=== PATIENT | male | born 1965 | race Caucasian/White ===

== ENCOUNTER 2016-06-29 09:43 | Emergency (ER) | payer MEDICARE ==
[2015-08-20 08:21] VITALS: BMI 23.1
[~2016-06-29 09:43] MED LIST: ALDACTONE25 MG PO; BYSTOLIC5 MG PO; KLONOPIN1 MG PO; LASIX40 MG PO; MORPHINE SULFAT30 M3 PO; MORPHINE SULFAT60 M5 PO; NORCO 5/325 TAB1 TA1 PO; PRILOSEC20 MG PO; ROXICODONE30 MG PO; ROXICODONE5 MG PO; VIBRAMYCIN 100100 MG PO; VIBRAMYCIN50 MG PO
== END 2016-06-29 11:13 | disposition home or self-care (01) ==
LOC: D.ER 09:43
DX: S69.92XA Unspecified injury of left wrist, hand and finger(s), initial encounter (principal); W19.XXXA Unspecified fall, initial encounter; Y93.02 Activity, running; Y92.159 Unspecified place in reform school as the place of occurrence of the external cause; K22.70 Barrett's esophagus without dysplasia; K74.60 Unspecified cirrhosis of liver; I10 Essential (primary) hypertension

== ENCOUNTER 2016-07-24 11:46 | Emergency (ER) | payer MEDICARE ==
[2015-08-20 08:21] VITALS: BMI 23.1
== END 2016-07-24 14:21 | disposition home or self-care (01) ==
LOC: D.ER 11:46
DX: M79.622 Pain in left upper arm (principal); S46.212A Strain of muscle, fascia and tendon of other parts of biceps, left arm, initial encounter; W01.0XXA Fall on same level from slipping, tripping and stumbling without subsequent striking against object, initial encounter; Y93.89 Activity, other specified; Y92.019 Unspecified place in single-family (private) house as the place of occurrence of the external cause; K74.60 Unspecified cirrhosis of liver; K22.70 Barrett's esophagus without dysplasia; I10 Essential (primary) hypertension

== ENCOUNTER → 2018-02-27 10:26 | Outpatient (CLI) | payer MEDICARE ==
[2015-08-20 08:21] VITALS: BMI 23.1
== END | disposition home or self-care (01) ==
LOC: D.RAD 10:26
DX: M54.2 Cervicalgia (principal)

== ENCOUNTER 2018-09-26 11:57 | Emergency (ER) | payer MEDICARE ==
[~2018-09-26] VITALS: Ht 185.4 cm; Wt 86.4 kg
[2018-09-26 11:59] VITALS: Ht 185.4 cm; Wt 86.4 kg
[2018-09-26 16:09] VITALS: BP 122/68
== END 2018-09-26 16:10 | disposition home or self-care (01) ==
LOC: D.ER 11:57
DX: M25.552 Pain in left hip (principal); M87.88 Other osteonecrosis, other site

== ENCOUNTER → 2018-11-03 09:32 | Outpatient (CLI) | payer MEDICARE ==
[2018-09-26 11:59] VITALS: BMI 25.1
== END | disposition home or self-care (01) ==
LOC: D.LABREF 09:32
PROVIDERS: ATTEND Family Medicine
DX: M86.60 Other chronic osteomyelitis, unspecified site (principal)

== ENCOUNTER → 2018-11-06 18:56 | Outpatient (CLI) | payer MEDICARE ==
[2018-09-26 11:59] VITALS: BMI 25.1
[2018-11-06 19:10] LABS: BASOPHILS 0.9 % (0-2); EOSINOPHILS 3.9 % (0-7); HEMATOCRIT 32.3 % (42.0-54.0); HEMOGLOBIN 10.4 g/dL (13.5-17.5); IMMATURE GRANULOCYTES 0.2 % (0-5); LYMPHOCYTES 15.7 % (15-50); MCH 25.6 pg (26.0-34.0); MCHC 32.2 g/dL (31.0-37.0); MCV 79.4 fL (80.0-100.0); MEAN PLATELET VOLUME 10.4 fL (7.4-10.4); MONOCYTES 10.3 % (2-11); PLATELET COUNT 172 10x3/uL (130-400); RBC 4.07 10x6/uL (4.20-6.10); WBC 4.6 10x3/uL (4.8-10.8)
[2018-11-06 19:28] LABS: CREATININE - SERUM 1.2 mg/dL (0.6-1.3); VANCOMYCIN - TROUGH 18.9 ug/mL (10.0-20.0)
== END | disposition home or self-care (01) ==
LOC: D.LABREF 18:56
PROVIDERS: ATTEND Family Medicine
DX: M86.6 Other chronic osteomyelitis (principal); K74.69 Other cirrhosis of liver

== ENCOUNTER → 2018-11-13 17:41 | Outpatient (CLI) | payer MEDICARE ==
[2018-09-26 11:59] VITALS: BMI 25.1
[2018-11-13 18:34] LABS: HEMATOCRIT 27.9 % (42.0-54.0); MCH 25.2 pg (26.0-34.0); MCHC 32.3 g/dL (31.0-37.0); MCV 78.2 fL (80.0-100.0); RBC 3.57 10x6/uL (4.20-6.10)
[2018-11-13 18:55] LABS: CREATININE - SERUM 0.9 mg/dL (0.6-1.3)
[2018-11-13 19:00] LABS: PLATELET COUNT 102 10x3/uL (130-400)
[2018-11-13 21:32] LABS: LYMPHOCYTES 22 % (15-50); MONOCYTES 6 % (2-11); NEUTROPHILS 66 % (40-80); PLATELET ESTIMATE DECREASED
== END | disposition home or self-care (01) ==
LOC: D.LABREF 17:41
PROVIDERS: ATTEND Family Medicine
DX: T84.59XA Infection and inflammatory reaction due to other internal joint prosthesis, initial encounter (principal)

== ENCOUNTER → 2018-11-20 14:06 | Outpatient (CLI) | payer MEDICARE ==
[2018-09-26 11:59] VITALS: BMI 25.1
[2018-11-20 23:44] LABS: WBC 4.9 10x3/uL (4.8-10.8)
[2018-11-20 23:45] LABS: HEMATOCRIT 24.3 % (42.0-54.0); HEMOGLOBIN 7.7 g/dL (13.5-17.5); LYMPHOCYTES 21.3 % (15-50); MCHC 31.7 g/dL (31.0-37.0); MCV 78.9 fL (80.0-100.0); MEAN PLATELET VOLUME 9.7 fL (7.4-10.4); NEUTROPHILS 74.6 % (40-80); PLATELET COUNT 138 10x3/uL (130-400); RBC 3.08 10x6/uL (4.20-6.10); RDW 14.3 % (11.5-14.5)
== END | disposition home or self-care (01) ==
LOC: D.LABREF 14:06
PROVIDERS: ATTEND Family Medicine
DX: T84.59XA Infection and inflammatory reaction due to other internal joint prosthesis, initial encounter (principal)

== ENCOUNTER → 2018-11-23 17:51 | Outpatient (CLI) | payer MEDICARE ==
[2018-09-26 11:59] VITALS: BMI 25.1
[2018-11-23 18:08] LABS: BASOPHILS 0.3 % (0-2); EOSINOPHILS 3.8 % (0-7); HEMATOCRIT 29.5 % (42.0-54.0); HEMOGLOBIN 9.2 g/dL (13.5-17.5); IMMATURE GRANULOCYTES 0.6 % (0-5); LYMPHOCYTES 13.3 % (15-50); MCH 24.6 pg (26.0-34.0); MCHC 31.2 g/dL (31.0-37.0); MCV 78.9 fL (80.0-100.0); MEAN PLATELET VOLUME 9.4 fL (7.4-10.4); MONOCYTES 10.4 % (2-11); NEUTROPHILS 71.6 % (40-80); PLATELET COUNT 134 10x3/uL (130-400); RBC 3.74 10x6/uL (4.20-6.10); RDW 15.6 % (11.5-14.5); WBC 3.2 10x3/uL (4.8-10.8)
== END | disposition home or self-care (01) ==
LOC: D.LABREF 17:51
PROVIDERS: ATTEND Internal Medicine Infectious Disease
DX: R74.8 Abnormal levels of other serum enzymes (principal); T84.59XA Infection and inflammatory reaction due to other internal joint prosthesis, initial encounter

== ENCOUNTER → 2018-11-27 17:53 | Outpatient (CLI) | payer MEDICARE ==
[2018-09-26 11:59] VITALS: BMI 25.1
[2018-11-27 18:19] LABS: BASOPHILS 0.6 % (0-2); EOSINOPHILS 2.1 % (0-7); HEMOGLOBIN 9.3 g/dL (13.5-17.5); IMMATURE GRANULOCYTES 0.3 % (0-5); LYMPHOCYTES 13.4 % (15-50); MCH 24.5 pg (26.0-34.0); MCV 78.9 fL (80.0-100.0); MEAN PLATELET VOLUME 9.4 fL (7.4-10.4); NEUTROPHILS 75.6 % (40-80); PLATELET COUNT 136 10x3/uL (130-400); RDW 15.4 % (11.5-14.5); WBC 3.4 10x3/uL (4.8-10.8)
[2018-11-27 18:33] LABS: CREATININE - SERUM 1.1 mg/dL (0.6-1.3)
== END | disposition home or self-care (01) ==
LOC: D.LABREF 17:53
PROVIDERS: ATTEND Family Medicine
DX: T84.59XA Infection and inflammatory reaction due to other internal joint prosthesis, initial encounter (principal)

== ENCOUNTER → 2018-12-04 13:53 | Outpatient (CLI) | payer MEDICARE ==
[2018-09-26 11:59] VITALS: BMI 25.1
[2018-12-04 14:37] LABS: BASOPHILS 0.6 % (0-2); EOSINOPHILS 1.8 % (0-7); HEMATOCRIT 33.4 % (42.0-54.0); HEMOGLOBIN 10.7 g/dL (13.5-17.5); IMMATURE GRANULOCYTES 0.6 % (0-5); LYMPHOCYTES 11.8 % (15-50); MCH 24.1 pg (26.0-34.0); MCV 75.2 fL (80.0-100.0); MEAN PLATELET VOLUME 9.3 fL (7.4-10.4); MONOCYTES 8.4 % (2-11); NEUTROPHILS 76.8 % (40-80); RBC 4.44 10x6/uL (4.20-6.10); RDW 15.4 % (11.5-14.5)
[2018-12-04 14:46] LABS: PLATELET COUNT 169 10x3/uL (130-400)
== END | disposition home or self-care (01) ==
LOC: D.LABREF 13:53
PROVIDERS: ATTEND Internal Medicine Infectious Disease
DX: T84.59XA Infection and inflammatory reaction due to other internal joint prosthesis, initial encounter (principal); M86.612 Other chronic osteomyelitis, left shoulder; G62.9 Polyneuropathy, unspecified

== ENCOUNTER → 2019-08-28 12:48 | Outpatient (CLI) | payer MEDICARE ==
[2018-09-26 11:59] VITALS: BMI 25.1
== END | disposition home or self-care (01) ==
LOC: D.RAD 12:48
PROVIDERS: ATTEND Podiatrist Foot & Ankle Surgery
DX: S93.124A Dislocation of metatarsophalangeal joint of right lesser toe(s), initial encounter (principal); M20.41 Other hammer toe(s) (acquired), right foot

== ENCOUNTER → 2019-09-28 12:01 | Outpatient (CLI) | payer MEDICARE ==
[2018-09-26 11:59] VITALS: BMI 25.1
[~2019-09-28 12:01] MED LIST changes: +ASCORBIC ACID500 MG PO; +OXYCODONE HCL5 M1 PO; +VITAMIN B-2100 MG PO; +VITAMIN B-6100 MG PO; +VITAMIN E100 UNIT PO; +ZINC GLUCONATE50 MG PO
== END | disposition home or self-care (01) ==
LOC: D.LABREF 12:01
PROVIDERS: ATTEND Internal Medicine Pulmonary Disease
DX: Z11.59 Encounter for screening for other viral diseases (principal)

== ENCOUNTER 2019-10-02 09:54 | Day surgery (SDC) | payer MEDICARE ==
[~2019-10-02] VITALS: Ht 185.4 cm; Wt 79.4 kg
[~2019-10-02 09:54] MED LIST changes: -ASCORBIC ACID500 MG PO; -VITAMIN B-6100 MG PO; -VITAMIN E100 UNIT PO
[2019-10-02 10:19] LABS: BASOPHILS 0.5 % (0-2); EOSINOPHILS 1.7 % (0-7); HEMATOCRIT 46.9 % (42.0-54.0); HEMOGLOBIN 15.3 g/dL (13.5-17.5); IMMATURE GRANULOCYTES 0.6 % (0-5); LYMPHOCYTES 16.1 % (15-50); MCH 24.2 pg (26.0-34.0); MCHC 32.6 g/dL (31.0-37.0); MCV 74.2 fL (80.0-100.0); MONOCYTES 7.6 % (2-11); NEUTROPHILS 73.5 % (40-80); RBC 6.32 10x6/uL (4.20-6.10); RDW 16.5 % (11.5-14.5); WBC 11.1 10x3/uL (4.8-10.8)
[2019-10-02 10:22] LABS: PLATELET COUNT 203 10x3/uL (130-400)
[2019-10-02 10:34] LABS: ALBUMIN 4.4 g/dL (3.4-5.0); ANION GAP 14.3 mmol/L (8-16); BILIRUBIN - TOTAL 0.58 mg/dL (0.2-1.3); CALCIUM 9.5 mg/dL (8.5-10.1); CARBON DIOXIDE 25.8 mmol/L (21.0-32.0); CREATININE - SERUM 1.3 mg/dL (0.6-1.3); POTASSIUM - SERUM 4.1 mmol/L (3.5-5.1); PROTEIN - SERUM 9.5 g/dL (6.4-8.2)
[2019-10-02 10:40] LABS: INR 1.07 (0.85-1.17); PROTIME 13.8 SECONDS (11.6-15.0)
[2019-10-02 10:41] LABS: APTT 38.8 SECONDS (22.8-39.4)
[2019-10-02] MEDS ORDERED: VITAMIN E100 UNIT PO (11:45)
[2019-10-02] MEDS ORDERED: VITAMIN B-6100 MG PO (11:46)
[2019-10-02] MEDS ORDERED: ASCORBIC ACID500 MG PO (11:47)
[2019-10-02 11:54] VITALS: BP 109/83; Ht 185.4 cm; Wt 79.4 kg
== END 2019-10-02 14:40 | disposition home or self-care (01) ==
LOC: D.OPS 09:54
PROVIDERS: Anesthesiology; ATTEND Podiatrist Foot & Ankle Surgery
DX: S93.334A Other dislocation of right foot, initial encounter (principal); L97.519 Non-pressure chronic ulcer of other part of right foot with unspecified severity; X58.XXXA Exposure to other specified factors, initial encounter

== ENCOUNTER → 2019-12-31 17:54 | Outpatient (CLI) | payer MEDICARE ==
[2019-10-02 11:54] VITALS: BMI 23.1
[~2019-12-31 17:54] MED LIST changes: +ASCORBIC ACID500 MG PO; +VITAMIN B-6100 MG PO; +VITAMIN E100 UNIT PO
[2019-12-31 18:31] LABS: BASOPHILS 0.3 % (0-2); EOSINOPHILS 1.6 % (0-7); HEMATOCRIT 32.6 % (42.0-54.0); HEMOGLOBIN 10.2 g/dL (13.5-17.5); IMMATURE GRANULOCYTES 0.3 % (0-5); LYMPHOCYTES 11.3 % (15-50); MCH 23.8 pg (26.0-34.0); MCHC 31.3 g/dL (31.0-37.0); MEAN PLATELET VOLUME 9.6 fL (7.4-10.4); MONOCYTES 12.2 % (2-11); NEUTROPHILS 74.3 % (40-80); RBC 4.29 10x6/uL (4.20-6.10); RDW 17.8 % (11.5-14.5); WBC 3.1 10x3/uL (4.8-10.8)
[2019-12-31 18:32] LABS: PLATELET COUNT 101 10x3/uL (130-400)
[2019-12-31 18:59] LABS: ALBUMIN 3.3 g/dL (3.4-5.0); BILIRUBIN - DIRECT 0.23 mg/dL (0.00-0.30); BILIRUBIN - INDIRECT 0.27 mg/dL (0.00-1.00); BILIRUBIN - TOTAL 0.5 mg/dL (0.2-1.3); CREATININE - SERUM 1.1 mg/dL (0.6-1.3); PROTEIN - SERUM 7.7 g/dL (6.4-8.2)
== END | disposition home or self-care (01) ==
LOC: D.LAB 17:54
PROVIDERS: ATTEND Internal Medicine Infectious Disease
DX: Z47.31 Aftercare following explantation of shoulder joint prosthesis (principal)

== ENCOUNTER → 2020-01-07 17:15 | Outpatient (CLI) | payer MEDICARE ==
[2019-10-02 11:54] VITALS: BMI 23.1
[2020-01-07 23:19] LABS: BASOPHILS 0.5 % (0-2); EOSINOPHILS 1.4 % (0-7); HEMATOCRIT 31.2 % (42.0-54.0); HEMOGLOBIN 9.7 g/dL (13.5-17.5); IMMATURE GRANULOCYTES 0.5 % (0-5); LYMPHOCYTES 17.9 % (15-50); MCH 24.3 pg (26.0-34.0); MCHC 31.1 g/dL (31.0-37.0); MCV 78.2 fL (80.0-100.0); MEAN PLATELET VOLUME 9.3 fL (7.4-10.4); MONOCYTES 11.6 % (2-11); NEUTROPHILS 68.1 % (40-80); RBC 3.99 10x6/uL (4.20-6.10); RDW 18.2 % (11.5-14.5); WBC 2.1 10x3/uL (4.8-10.8)
[2020-01-07 23:22] LABS: PLATELET COUNT 134 10x3/uL (130-400)
[2020-01-07 23:28] LABS: BILIRUBIN - DIRECT 0.1 mg/dL (0.00-0.30); BILIRUBIN - INDIRECT 0.09 mg/dL (0.00-1.00); BILIRUBIN - TOTAL 0.19 mg/dL (0.2-1.3); PROTEIN - SERUM 7.1 g/dL (6.4-8.2)
== END | disposition home or self-care (01) ==
LOC: D.LABREF 17:15
PROVIDERS: ATTEND Internal Medicine Infectious Disease
DX: T84.59XA Infection and inflammatory reaction due to other internal joint prosthesis, initial encounter (principal)

== ENCOUNTER → 2020-01-14 19:13 | Outpatient (CLI) | payer MEDICARE ==
[2019-10-02 11:54] VITALS: BMI 23.1
[2020-01-14 20:04] LABS: HEMOGLOBIN 10.2 g/dL (13.5-17.5); MCH 24.2 pg (26.0-34.0); MCHC 30.9 g/dL (31.0-37.0); MCV 78.2 fL (80.0-100.0); MEAN PLATELET VOLUME 10.2 fL (7.4-10.4); PLATELET COUNT 130 10x3/uL (130-400); RBC 4.22 10x6/uL (4.20-6.10); RDW 18.8 % (11.5-14.5); WBC 2.8 10x3/uL (4.8-10.8)
[2020-01-14 20:24] LABS: ALBUMIN 3.5 g/dL (3.4-5.0); BILIRUBIN - DIRECT 0.14 mg/dL (0.00-0.30); BILIRUBIN - INDIRECT 0.18 mg/dL (0.00-1.00); BILIRUBIN - TOTAL 0.32 mg/dL (0.2-1.3); PROTEIN - SERUM 7.8 g/dL (6.4-8.2)
[2020-01-14 22:14] LABS: LYMPHOCYTES 22 % (15-50); MONOCYTES 7 % (2-11); NEUTROPHILS 68 % (40-80); PLATELET ESTIMATE NORMAL
== END | disposition home or self-care (01) ==
LOC: D.LABREF 19:13
PROVIDERS: ATTEND Internal Medicine Infectious Disease
DX: T84.59XA Infection and inflammatory reaction due to other internal joint prosthesis, initial encounter (principal)

== ENCOUNTER → 2020-01-21 20:27 | Outpatient (CLI) | payer MEDICARE ==
[2019-10-02 11:54] VITALS: BMI 23.1
[2020-01-21 20:47] LABS: HEMATOCRIT 32.3 % (42.0-54.0); HEMOGLOBIN 9.8 g/dL (13.5-17.5); MCH 23.8 pg (26.0-34.0); MCHC 30.3 g/dL (31.0-37.0); MCV 78.6 fL (80.0-100.0); MEAN PLATELET VOLUME 9.7 fL (7.4-10.4); PLATELET COUNT 156 10x3/uL (130-400); RBC 4.11 10x6/uL (4.20-6.10); RDW 17.9 % (11.5-14.5); WBC 2.9 10x3/uL (4.8-10.8)
[2020-01-21 21:02] LABS: ALBUMIN 3.4 g/dL (3.4-5.0); BILIRUBIN - DIRECT 0.1 mg/dL (0.00-0.30); BILIRUBIN - INDIRECT 0.25 mg/dL (0.00-1.00); BILIRUBIN - TOTAL 0.35 mg/dL (0.2-1.3); CREATININE - SERUM 0.9 mg/dL (0.6-1.3); PROTEIN - SERUM 7.9 g/dL (6.4-8.2)
[2020-01-21 21:42] LABS: LYMPHOCYTES 14 % (15-50); MONOCYTES 2 % (2-11); NEUTROPHILS 84 % (40-80); PLATELET ESTIMATE NORMAL
== END | disposition home or self-care (01) ==
LOC: D.LABREF 20:27
PROVIDERS: ATTEND Internal Medicine Infectious Disease
DX: T84.59XA Infection and inflammatory reaction due to other internal joint prosthesis, initial encounter (principal)

== ENCOUNTER → 2020-01-28 18:04 | Outpatient (CLI) | payer MEDICARE ==
[2019-10-02 11:54] VITALS: BMI 23.1
[2020-01-28 19:36] LABS: HEMATOCRIT 34.8 % (42.0-54.0); MCH 24.1 pg (26.0-34.0); MCHC 31.6 g/dL (31.0-37.0); MCV 76.1 fL (80.0-100.0); MEAN PLATELET VOLUME 9.5 fL (7.4-10.4); PLATELET COUNT 142 10x3/uL (130-400); RBC 4.57 10x6/uL (4.20-6.10); RDW 17.4 % (11.5-14.5); WBC 2.4 10x3/uL (4.8-10.8)
[2020-01-28 20:22] LABS: ALBUMIN 3.5 g/dL (3.4-5.0); BILIRUBIN - DIRECT 0.06 mg/dL (0.00-0.30); BILIRUBIN - INDIRECT 0.2 mg/dL (0.00-1.00); BILIRUBIN - TOTAL 0.26 mg/dL (0.2-1.3); PROTEIN - SERUM 7.8 g/dL (6.4-8.2)
[2020-01-28 21:59] LABS: EOSINOPHILS 3 % (0-7); LYMPHOCYTES 23 % (15-50); MONOCYTES 1 % (2-11); NEUTROPHILS 71 % (40-80); PLATELET ESTIMATE NORMAL
== END | disposition home or self-care (01) ==
LOC: D.LABREF 18:04
PROVIDERS: ATTEND Family Medicine
DX: T84.59XA Infection and inflammatory reaction due to other internal joint prosthesis, initial encounter (principal); B95.61 Methicillin susceptible Staphylococcus aureus infection as the cause of diseases classified elsewhere

== ENCOUNTER 2020-08-17 08:50 | Emergency (ER) | payer MEDICARE ==
[~2020-08-17] VITALS: Ht 185.4 cm; Wt 81.8 kg
[2020-08-17 08:59] VITALS: Ht 185.4 cm; Wt 81.8 kg
[2020-08-17] MEDS ORDERED: IBUPROFEN800 MG PO (09:53)
[2020-08-17] MEDS ORDERED: CYCLOBENZAPRINE10 MG PO (09:53)
[2020-08-17 10:04] VITALS: BP 130/83
== END 2020-08-17 10:05 | disposition other institution (70) ==
LOC: D.ER 08:50
DX: S20.212A Contusion of left front wall of thorax, initial encounter (principal); R07.9 Chest pain, unspecified; M79.10 Myalgia, unspecified site; G62.9 Polyneuropathy, unspecified; I10 Essential (primary) hypertension